=== PATIENT | female | born 1955 | race African-American/Black ===

== ENCOUNTER 2023-03-26 15:29 | Emergency (ER) | payer MEDICARE, OTHER ==
[~2023-03-26] VITALS: Ht 167.6 cm; Wt 52.0 kg
[2023-03-26 15:39] VITALS: BP 135/82; RESP 16; TEMP 98.3; O2SAT 100
[2023-03-26 15:41] VITALS: PULSE 67
== END 2023-03-26 17:55 | disposition home or self-care (01) ==
LOC: ER 15:29
DX: M54.50 Low back pain, unspecified (principal)
CPT/HCPCS: 99281

== ENCOUNTER 2023-06-21 15:09 | Emergency (ER) | payer MEDICARE, OTHER ==
[~2023-06-21] VITALS: Ht 167.6 cm; Wt 49.4 kg
[2023-06-21 15:31] VITALS: BP 125/65; PULSE 80; RESP 16; TEMP 98.6; O2SAT 100
[2023-06-21 16:22] LABS: BASOPHILS % 0.5 % (0.0-2.0); EOSINOPHILS % 0.6 % (0.0-5.0); HEMATOCRIT. 37.6 % (36.0-48.0); HEMOGLOBIN. 12.6 g/dL (12.0-16.0); LYMPHOCYTES % 25.8 % (20.0-50.0); MEAN CORPUSCULAR HEMOGLOBIN 31.3 pg (28.0-32.0); MEAN CORPUSCULAR HGB CONC 33.6 g/dL (31.0-37.0); MEAN CORPUSCULAR VOLUME 93.1 fL (81.0-99.0); MONOCYTES % 6.7 % (2.0-8.0); NEUTROPHILS % 66.4 % (40.0-76.0); PLATELET 212 x1000/uL (130-400); RED BLOOD CELL COUNT 4.03 mill/uL (4.2-5.4); RED CELL DISTRIBUTION WIDTH 14.5 % (11.6-14.6); WHITE BLOOD COUNT 3.5 x1000/uL (4.5-11.0)
[2023-06-21 16:31] LABS: INR 0.9; PROTHROMBIN TIME 10.2 sec (9.6-11.0)
[2023-06-21 16:35] LABS: ALANINE AMINOTRANSFERASE 21 IU/L (10-49); ALBUMIN 4.1 g/dL (3.2-4.8); ASPARTATE AMINOTRANSFERASE 25 IU/L (<34); BILIRUBIN TOTAL 0.5 mg/dL (0.1-1.0); CALCIUM 9.4 mg/dL (8.7-10.4); CARBON DIOXIDE 31 mEq/L (21-32); CHLORIDE 106 mEq/L (98-107); CREATININE 1.1 mg/dL (0.6-1.0); GLUCOSE 92 mg/dL (70-105); POTASSIUM 4.5 mEq/L (3.5-5.1); PROTEIN TOTAL 7.3 g/dL (6.0-8.3); SODIUM 140 mEq/L (136-145); UREA NITROGEN BLOOD 24 mg/dL (9-23)
== END 2023-06-21 19:13 | disposition home or self-care (01) ==
LOC: ER 15:09
DX: R10.13 Epigastric pain (principal); V87.8XXA Person injured in other specified noncollision transport accidents involving motor vehicle (traffic), initial encounter; Y93.89 Activity, other specified; Y92.89 Other specified places as the place of occurrence of the external cause; Y99.8 Other external cause status
CPT/HCPCS: 36415; 74176; 80053; 85025; 99284; 99291

== ENCOUNTER 2025-01-03 14:37 | Emergency (ER) | payer MEDICARE, OTHER ==
[~2025-01-03] VITALS: Ht 167.6 cm; Wt 52.0 kg
[2025-01-03 14:44] VITALS: O2SAT 100
[2025-01-03 17:20] VITALS: BP 122/66; PULSE 68; RESP 16; TEMP 36.7; O2SAT 100
== END 2025-01-03 17:22 | disposition home or self-care (01) ==
LOC: ER 14:37
DX: M51.372 Other intervertebral disc degeneration, lumbosacral region with discogenic back pain and lower extremity pain (principal); M54.31 Sciatica, right side; Z90.89 Acquired absence of other organs; Z98.890 Other specified postprocedural states
CPT/HCPCS: 72131; 99284

== ENCOUNTER 2025-02-01 13:58 | Emergency (ER) | payer MEDICARE, OTHER ==
[~2025-02-01] VITALS: Ht 167.6 cm; Wt 53.0 kg
[2025-02-01 14:04] VITALS: O2SAT 99
[2025-02-01] MEDS ORDERED: IBUP-2028 MT (15:38)
[2025-02-01 16:10] VITALS: BP 158/71; PULSE 60; RESP 16; TEMP 36.6; O2SAT 100
[2025-02-01] MEDS: IBUPROFEN 600MG TABLET PO ONE (16:12)
== END 2025-02-01 16:21 | disposition home or self-care (01) ==
LOC: ER 13:58
DX: M79.672 Pain in left foot (principal); Z90.89 Acquired absence of other organs
CPT/HCPCS: 73610; 73630; 99284

== ENCOUNTER 2025-05-21 10:58 | Emergency (ER) | payer MEDICARE, OTHER ==
[~2025-05-21] VITALS: Ht 167.6 cm; Wt 52.0 kg
[~2025-05-21 10:58] MED LIST: IBUP-2028 MT
[2025-05-21 11:04] VITALS: O2SAT 99
[2025-05-21] MEDS ORDERED: NAPR-681 MT (12:03)
[2025-05-21] MEDS ORDERED: ACET-2708 MT (12:03)
[2025-05-21 12:34] VITALS: BP 143/71; PULSE 54; RESP 16; TEMP 37; O2SAT 100
== END 2025-05-21 12:39 | disposition home or self-care (01) ==
LOC: ER 11:17
DX: M25.521 Pain in right elbow (principal)
CPT/HCPCS: 99283; 73080; A6449; A4565